=== PATIENT | male | born 1995 | race Caucasian/White ===

== ENCOUNTER 2019-11-28 07:03 | Outpatient (CLI) | payer OTHER, SELFPAY ==
--- NOTE | 2019-12-02 10:48 | WPDNEUROLOGY ---
Neurology EEG Report General Information Date of Study: 11/28/19 TEST EEG DIAGNOSIS speech impairment CONDITION OF RECORDING awake,drowsy,and sleep EEG NUMBER [id number] CLINICAL HISTORY Patient is known epileptic since age 17 years. Has not had a seizure in over a year. Recently has noted slight speech impairment with trouble remembering things EEG DESCRIPTION basic resting occipital frequency consists of is small amount of poorly organized low voltage 9 to 11 hertz per 2nd alpha admixed with low-voltage beta activity and a small amount of 6 to 7 hertz per 2nd theta activity. Multiple artifacts are seen throughout the tracing. During drowsiness low-voltage beta activity seen diffusely. Bilateral symmetrical sleep activity seen. Intermittent EKG artifact is noted throughout the tracing. Non paroxysmal. Nonfocal. Nonlateralizing. IMPRESSION Normal record during wakefulness drowsiness and sleep with photic stimulation but no hyperventilation
== END 2019-11-28 07:04 | disposition home or self-care (01) ==
PROVIDERS: Visit Provider Psychiatry & Neurology Neurology
DX: R56.9 Unspecified convulsions (principal)
CPT/HCPCS: 95819

== ENCOUNTER 2020-01-27 09:55 | Emergency (ER) | payer OTHER, SELFPAY ==
--- NOTE | ~2020-01-27 | CT_ITS ---
EXAMINATION: CT abdomen pelvis wo con EXAM DATE: 01/27/2020 11:19 INDICATION: worsening umbilical and RUQ abdominal pain . TECHNIQUE: Spiral CT of the abdomen and pelvis was performed without contrast. Axial, coronal and s agittal images were reviewed. The dose-length product (DLP) for this examination was 489.00 mGy-cm. The exposure was tailored according to patient size (auto mA exposure control), and iterative recons truction (ASIR) was used as additional dose reduction technique. There is no prior study for compari son. FINDINGS: No abdominal wall hernias. The liver, spleen, adrenal glands and pancreas are unremarkable. There may be poorly calcified cholelithiasis. Gallbladder otherwise unremarkable. There is no neph rolithiasis or hydronephrosis. The prostate is unremarkable. The bladder is unremarkable. There i s no retroperitoneal or pelvic lymphadenopathy. Probable identification of a normal appendix. No pericecal inflammation. The stomach and small aimee l are unremarkable. There is expected amount of colonic stool. No free intraperitoneal gas. The heart is normal in size. There are no pericardial or pleural effusions. The lung bases are unremark able. There are no osteoblastic or osteolytic lesions identified. IMPRESSION: 1. Possible cholelithiasis. Reviewed, dictated and finalized at location [facility] IMPRESSION: 1. Possible cholelithiasis.
[2020-01-27 10:17] VITALS: BP 127/85; PULSE 98; RESP 17; TEMP 36.5; O2SAT 99
[2020-01-27 10:35] LABS: Basophils Absolute Auto 0.1 K/mm3 (0.0-0.1); Basophils Percent Auto 0.9 % (0.2-1.2); Eosinophils Absolute Auto 0.3 K/mm3 (0-0.3); Eosinophils Percent Auto 3.8 % (0-4.4); Hematocrit 46.6 % (42.0-52.0); Hemoglobin 16.6 g/dL (14.0-18.0); Immature Granulocyte Absolute 0.03 K/mm3 (0.00-0.031); Immature Granulocyte Percent A 0.4 % (0-0.5); Lymphocytes Absolute Auto 2.04 K/mm3 (0.9-3.2); Lymphocytes Percent Auto 23.9 % (18.3-44.2); Mean Corpuscular HGB Conc 35.6 g/dl (32-36); Mean Corpuscular Hemoglobin 34.5 pg (26-34); Mean Corpuscular Volume 96.9 fl (80-100); Mean Platelet Volume 10.6 fl (7.4-10.4); Monocytes Absolute Auto 0.8 K/mm3 (0.1-0.6); Monocytes Percent Auto 9.8 % (2.6-8.5); Neutrophils Absolute Auto 5.2 K/mm3 (1.3-6.7); Neutrophils Percent Auto 61.2 % (45.5-73.1); Platelet Count Result 266 k/mm3 (150-375); Red Blood Count 4.81 M/mm3 (4.6-6.20); White Blood Count 8.5 K/mm3 (4.5-10.0)
[2020-01-27 10:44] LABS: Add Urine Microscopic? NO; Appearance Urine Clear (Clear); Bilirubin Urine Negative (Negative); Blood Urine Negative (Negative); Color Urine Straw (Yellow); Glucose Urine UA Negative (Negative); Ketones Urine Negative (Negative); Leukocyte Esterase Ur Negative LEU/UL (Negative); Nitrate Urine Negative (Negative); Protein Urine Negative (Negative); RBC Urine 0-2 /hpf (0-2); Urobilinogen Urine Negative mg/dL (<2.0); WBC Urine 0-3 /hpf
[2020-01-27 10:47] LABS: Alanine Aminotransferase 32 U/L (4-50); Albumin Level 4.6 g/dL (3.5-5.1); Alkaline Phosphatase 102 U/L (38-126); Anion Gap 6 mmol/L (8-16); Aspartate Amino Transferase 31 U/L (17-59); Bilirubin,Total 0.7 mg/dL (0.2-1.3); Blood Urea Nitrogen 9 mg/dL (9-20); Calcium 9.7 mg/dL (8.4-10.2); Carbon Dioxide 29 mmol/L (22-30); Chloride 105 mmol/L (98-107); Estimated CRCL calculation 124 ml/min; Estimated Glomerular Filt Rate > 60; Glucose 93 mg/dL (75-110); Lipase 58 U/L (23-300); Potassium 4.4 mmol/L (3.4-5.0); Sodium 140 mmol/L (137-145)
--- NOTE | 2020-01-27 11:07 | ED.ABDPAIN ---
HPI - Abdominal Pain General Chief Complaint: Abdominal Pain Stated Complaint: abd pain Time Seen by Provider: 01/27/20 10:04 Source: patient Mode of arrival: ambulatory Limitations: no limitations History of Present Illness HPI narrative: Patient presents with chief complaint of intermittent abdominal pain. Patient reports that he has had abdominal problems and has been diagnosed with IBS since the age of 6. Patient reports that his symptoms are intermittent and are sometimes triggered by foods such as spicy greasy or fatty foods. Patient states last night he ate gravy and today he noticed pain in his umbilical area as well as his right upper quadrant. 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 He called the office this morning and informed them of his symptoms, he was told to come to the emergency department. Patient states he has a family history of gallbladder disease as well as diverticulitis so he wonders if he is having the episode of diverticulitis. Patient has never been diagnosed with diverticulitis himself. However patient states that he has not ever had a colonoscopy or abdominal imaging. Patient states that he has been placed on pantoprazole for his abdominal symptoms. Patient has not adjusted his diet to avoid symptoms. Patient denies fever, chills, vomiting. Patient states at times he does have 2 to 3 days of diarrhea that then spontaneously resolves with bland diet. Patient denies any blood in his stool. Related Data Home Medications Medication Instructions Recorded Confirmed emtricitabine-tenofovir alafen tablet PO 01/27/20 [Descovy] levetiracetam PO 01/27/20 pantoprazole PO 01/27/20 Allergies Allergy/AdvReac Type Severity Reaction Status Date / Time No Known Allergies Allergy Verified 01/27/20 10:22 Review of Systems Review of Systems: Narrative: CONSTITUTIONAL: Denies fever, chills, or sweats. EYES: Denies visual changes, redness, or discharge. ENT: Denies rhinorrhea, congestion, sore throat, or otalgia. CARDIOVASCULAR: Denies chest pain, palpitations, or edema. RESPIRATORY: Denies cough or dyspnea. GASTROINTESTINAL: Reports abdominal pain, denies nausea, vomiting, or diarrhea. GENITOURINARY: Denies dysuria or hematuria. SKIN: Denies rash or itching. MUSCULOSKELETAL: Denies back pain, joint pain, or myalgia. NEUROLOGIC: Denies headache, numbness, dizziness, or weakness. PSYCHIATRIC: Denies anxiety or depression. PMFSH Social History Social History Gender identity (if verbalized by the patient): Male Exam Narrative: Exam Narrative: GENERAL: Well-appearing, well-nourished, and in no acute distress. No signs of discomfort or distress. Patient smiling and talking without difficulty or signs of discomfort. HEAD: Normocephalic, atraumatic. EYES: PERRLA and EOMI. NECK: Supple. No adenopathy or masses. No carotid bruits or JVD CHEST: Clear to auscultation. No respiratory distress. No wheezes rales or rhonchi HEART: Regular rate and rhythm. No murmur heard. Normal peripheral pulses. ABDOMEN: Soft, mild tenderness with palpation of umbilicus and right upper quadrant., nondistended, normal active bowel sounds. EXTREMITIES: Normal range of motion. No edema. SKIN: Warm, dry, no rash. NEURO: No focal deficits. Alert and oriented x3. PSYCH: Normal mood and affect. Course Vital Signs Vital signs: Vital Signs Temperature 97.7 F 01/27/20 10:17 Pulse Rate 98 01/27/20 10:17 Respiratory Rate 17 01/27/20 10:17 Blood Pressure 127/85 01/27/20 10:17 Pulse Oximetry 99 01/27/20 10:17 Temperature 97.7 F 01/27/20 10:17 Pulse Rate 98 01/27/20 10:17 Respiratory Rate 17 01/27/20 10:17 Blood Pressure 127/85 01/27/20 10:17 Pulse Oximetry 99 01/27/20 10:17 MDM - Abdominal Pain MDM Narrative Medical decision making narrative: Patient states he has not had any imaging despite his symptoms getting
[2020-01-27 13:20] VITALS: BP 128/87; PULSE 73; RESP 17; O2SAT 99
== END 2020-01-27 13:21 | disposition home or self-care (01) ==
PROVIDERS: Physician Assistant; Emergency Provider Family Medicine
DX: K80.20 Calculus of gallbladder without cholecystitis without obstruction (principal)
CPT/HCPCS: 36415; 74176; 80053; 81003; 83690; 85025; 99284